=== PATIENT | female | born 1955 | race Caucasian/White ===

== ENCOUNTER → 2017-08-24 | Outpatient (CLI) | payer OTHER ==
[~2017-08-24] MED LIST: MECLIZINE 25MG25 MG PO
== END ==
LOC: LAB 13:02
DX: N39.0 Urinary tract infection, site not specified (principal)

== ENCOUNTER → 2017-08-27 | Outpatient (CLI) | payer OTHER ==
[2017-08-27 13:34] LABS: HEMOGLOBIN 13.1 g/dL (12.2-16.2); LYMPH # 1.9 K/mm3 (0.7-4.5); LYMPH % 34.3 % (10-50.0)
[2017-08-27 14:21] LABS: BUN 9 mg/dL (7-18); GFR (ESTIMATED) 73 ML/MIN (59-)
--- NOTE | 2017-08-30 09:31 | RADIOLOGY REPORT PS360 ---
DIG MAMM-SCREEN [facility] W/CAD CAD Screening COMPARISON: Digital mammograms 07/26/2016 and 05/26/2015 INDICATION: There is no personal or family history of breast cancer. TECHNIQUE: Standard CC and MLO images were obtained. R2 CAD reviewed. FINDINGS: Scattered fibroglandular densities are seen in both breasts and the findings are bilateral and symmetrical. There is no suspicious lesion and there are no suspicious microcalcifications. IMPRESSION: Fibrofatty parenchyma with no suspicious lesion seen recommend yearly follow-up BI-RADS CATEGORY: 1_Negative RECOMMENDED FOLLOWUP: 12M 12 MONTH FOLLOW-UP (A letter has been sent to the patient regarding results of the study.)
== END ==
LOC: LAB 09:26 → RAD 09:26
PROVIDERS: Nurse Practitioner Obstetrics & Gynecology
DX: Z12.31 Encounter for screening mammogram for malignant neoplasm of breast (principal); Z01.419 Encounter for gynecological examination (general) (routine) without abnormal findings; R53.82 Chronic fatigue, unspecified
CPT/HCPCS: G0202